=== PATIENT | female | born 1995 | race Caucasian/White ===

== ENCOUNTER 2017-10-08 12:48 | Emergency (ER) | payer MEDICAID, OTHER ==
[2017-10-08 16:33] LABS: URINE BLOOD (Dip) POC Trace-intact (NEGATIVE); URINE GLUCOSE (Dip) POC Negative (NEGATIVE); URINE KETONES (Dip) POC Negative (NEGATIVE); URINE LEUKOCYTE EST (Dip) POC Negative (NEGATIVE); URINE NITRITE (Dip) POC Negative (NEGATIVE); URINE TOTAL PROTEIN POC Negative (NEGATIVE)
[2017-10-08 16:33] LABS: URINE PH (Dip) POC 7.5 (5.0-8.5)
== END 2017-10-08 17:10 | disposition home or self-care (01) ==
LOC: FTE 12:48
DX: N93.8 Other specified abnormal uterine and vaginal bleeding (principal); R10.2 Pelvic and perineal pain
CPT/HCPCS: 81003; 99283

== ENCOUNTER 2018-06-21 22:29 | Inpatient (IN) | payer MEDICAID ==
[2018-06-22] MEDS: ACETAMINOPHEN 500 MG TAB PO (00:10)
[2018-06-22 00:35] LABS: ADD UMIC YES; UR ASCORBIC ACID NEGATIVE (NEGATIVE); UR BILIRUBIN (Dip) NEGATIVE (NEGATIVE); UR BLOOD (Dip) NEGATIVE (NEGATIVE); UR CLARITY CLEAR (CLEAR); UR COLOR YELLOW (YELLOW); UR GLUCOSE (Dip) NEGATIVE (NEGATIVE); UR KETONES (Dip) TRACE mg/dL (NEGATIVE); UR LEUKOCYTE ESTERASE (Dip) 1+ Leu/ul (NEGATIVE); UR NITRITE (Dip) NEGATIVE (NEGATIVE); UR RBC 1 /HPF (0-5); UR SPECIFIC GRAVITY (Dip) 1.008 (1.003-1.030); UR SQUAMOUS EPITHELIAL CELL FEW /HPF (FEW); UR TOTAL PROTEIN (Dip) NEGATIVE (NEGATIVE); UR UROBILINOGEN (Dip) NEGATIVE (NEGATIVE); UR WBC 4 /HPF (0-5)
[2018-06-22] MEDS: BETAMET NA PHOS/AC(6 MG/ML) 5ML INJ IM (02:54)
[2018-06-22] MEDS: LACTATED RINGER'S 1,000 ML IV ×4 (03:06→21:20)
[2018-06-22] MEDS: MAGNESIUM SULFATE 4 GM/100 ML 100 ML IV (03:11)
[2018-06-22] MEDS: AMPICILLIN 2 GM/NS (PMX) 100 ML IV (03:31)
[2018-06-22 03:33] LABS: ADD MAN DIFF? NO
[2018-06-22 03:37] LABS: HEMATOCRIT 33.7 % (37.0-47.0); HEMOGLOBIN 11.4 g/dl (12.0-16.0); MEAN CORPUSCULAR HEMOGLOBIN 31.8 pg (29.0-33.0); MEAN CORPUSCULAR HGB CONC 33.8 g/dl (32.0-37.0); MEAN CORPUSCULAR VOLUME 94.1 fl (82.0-101.0); RED BLOOD COUNT 3.58 10^6/ul (4.20-5.40); RED CELL DISTRIBUTION WIDTH 12.4 % (11.5-14.5)
[2018-06-22 03:37] LABS: WHITE BLOOD COUNT 8.5 10^3/ul (4.8-10.8)
[2018-06-22 03:38] LABS: BASOPHILS % 0.2 % (0.0-2.0); LYMPHOCYTES # 0.8 10^3/ul (0.8-2.9); LYMPHOCYTES % 9.5 % (15.0-51.0); MEAN PLATELET VOLUME 9.6 fl (7.4-10.4); MONOCYTE # 0.9 10^3/ul (0.3-0.9); MONOCYTES % 10.5 % (0.0-11.0); NEUTROPHIL # 6.8 10^3/ul (1.6-7.5); NEUTROPHILS % 79.3 % (39.0-77.0); PLATELET COUNT 230 10^3/UL (140-415)
[2018-06-22] MEDS: MAGNESIUM SULFATE 20 GM/500 ML 500 ML IV ×3 (03:44→15:17)
[2018-06-22 03:52] LABS: LACTIC ACID 1.3 mmol/L (0.5-2.0)
[2018-06-22 03:53] LABS: INR 0.91; PROTIME 12.3 Sec (11.9-14.9)
[2018-06-22 03:54] LABS: PARTIAL THROMBOPLASTIN TIME 28.8 Sec (23.0-35.0)
[2018-06-22] MEDS ORDERED: AMPICILLIN 1 GM/NS (PMX) 50 ML IV (06:00)
[2018-06-22 06:57] LABS: MAGNESIUM 4.3 mg/dl (1.7-2.5)
[2018-06-22] MEDS: AMPICILLIN 1 GM/NS (PMX) 50 ML IV ×5 (07:32→23:48)
[2018-06-22] MEDS: PRENATAL VITAMIN PO (09:55)
[2018-06-22] MEDS: FERROUS SULFATE (EC) 325 MG TAB PO (09:56)
[2018-06-22 13:29] LABS: MAGNESIUM 3.9 mg/dl (1.7-2.5)
[2018-06-22 15:54] LABS: RAPID PLASMA REAGIN NONREACTIVE (NR)
[2018-06-22 18:09] LABS: MAGNESIUM 3.9 mg/dl (1.7-2.5)
[2018-06-22 18:10] LABS: ALANINE AMINOTRANSFERASE 24 IU/L (13-69); ALBUMIN 3.4 g/dl (3.3-4.9); ALBUMIN/GLOBULIN RATIO 1.21; ALKALINE PHOSPHATASE 117 IU/L (42-121); ANION GAP 12 (8-16); ASPARTATE AMINO TRANSFERASE 27 IU/L (15-46); BILIRUBIN,INDIRECT 0.3 mg/dl (0-1.1); BILIRUBIN,TOTAL 0.3 mg/dl (0.2-1.3); CALCIUM 7.7 mg/dl (8.4-10.2); CARBON DIOXIDE 24 mmol/L (21-31); CHLORIDE 105 mmol/L (97-110); CREATININE 0.36 mg/dl (0.44-1.00); GLUCOSE 105 mg/dl (70-220); POTASSIUM 3.7 mmol/L (3.5-5.1); SODIUM 137 mmol/L (135-144); TOTAL PROTEIN 6.2 g/dl (6.1-8.1)
[2018-06-22 18:11] LABS: BLOOD UREA NITROGEN < 2 mg/dl (7-20)
[2018-06-23] MEDS: LACTATED RINGER'S 1,000 ML IV ×2 (02:34→14:42)
[2018-06-23] MEDS: BETAMET NA PHOS/AC(6 MG/ML) 5ML INJ IM (02:34)
[2018-06-23] MEDS: AMPICILLIN 1 GM/NS (PMX) 50 ML IV ×5 (02:35→19:30)
[2018-06-23 08:11] LABS: MAGNESIUM 3.7 mg/dl (1.7-2.5)
[2018-06-23] MEDS: FERROUS SULFATE (EC) 325 MG TAB PO (08:43)
[2018-06-23] MEDS: PRENATAL VITAMIN PO (08:43)
[2018-06-23] MEDS: MAGNESIUM SULFATE 20 GM/500 ML 500 ML IV (11:30)
== END 2018-06-23 21:20 | disposition home or self-care (01) | DRG 833 ==
LOC: OBT 22:29 → L-D 22:32 → PP1 06-22 15:25
DX: O60.03 Preterm labor without delivery, third trimester (principal); O26.893 Other specified pregnancy related conditions, third trimester; J11.1 Influenza due to unidentified influenza virus with other respiratory manifestations; R50.9 Fever, unspecified; R10.9 Unspecified abdominal pain; M79.605 Pain in left leg; M79.604 Pain in right leg; Z3A.31 31 weeks gestation of pregnancy
CPT/HCPCS: 76817; 76818; 80053; 81001; 82731; 83605; 83735; 85025; 85610; 85730; 86592; 86850; 86900; 86901; 87040; 87081; 87086; 93970

== ENCOUNTER 2018-07-20 17:44 | Outpatient (CLI) | payer MEDICAID ==
[2018-07-20 19:25] LABS: RUPTURE FETAL MEMBRANES NEGATIVE (NEGATIVE)
== END 2018-07-20 20:48 | disposition home or self-care (01) ==
LOC: OBT 17:44 → L-D 17:46 → OBT 20:48
DX: O12.03 Gestational edema, third trimester (principal); Z3A.34 34 weeks gestation of pregnancy
CPT/HCPCS: 76818; 84112

== ENCOUNTER 2018-08-09 17:39 | Inpatient (IN) | payer MEDICAID ==
[2018-08-09] MEDS ORDERED: TERBUTALINE 1 ML (21:18)
[2018-08-09] MEDS: TERBUTALINE 1 MG/ML INJ SC (21:29)
[2018-08-09] MEDS ORDERED: MISOPROSTOL 200 MCG TAB PR (21:30)
[2018-08-09] MEDS ORDERED: METHYLERGONOVINE 0.2 MG INJ IM (21:30)
[2018-08-09] MEDS: LACTATED RINGER'S 1,000 ML IV (21:30)
[2018-08-09] MEDS ORDERED: OXYTOCIN 30 UNITS/LR 500 ML IV ×2 (21:30)
[2018-08-09] MEDS ORDERED: CEFAZOLIN 2 GM/50 ML (PMX) 50 ML IVPB (21:30)
[2018-08-09] MEDS ORDERED: CARBOPROST 250 MCG INJ IM (21:30)
[2018-08-09 21:49] LABS: ADD MAN DIFF? NO
[2018-08-09 21:53] LABS: BASOPHILS % 0.2 % (0.0-2.0); EOSINOPHILS % 0.2 % (0.0-7.0); HEMATOCRIT 36.3 % (37.0-47.0); HEMOGLOBIN 12.2 g/dl (12.0-16.0); LYMPHOCYTES # 2.1 10^3/ul (0.8-2.9); LYMPHOCYTES % 24.3 % (15.0-51.0); MEAN CORPUSCULAR HEMOGLOBIN 31.9 pg (29.0-33.0); MEAN CORPUSCULAR HGB CONC 33.6 g/dl (32.0-37.0); MEAN CORPUSCULAR VOLUME 94.8 fl (82.0-101.0); MEAN PLATELET VOLUME 9.9 fl (7.4-10.4); MONOCYTE # 0.6 10^3/ul (0.3-0.9); PLATELET COUNT 231 10^3/UL (140-415); RED BLOOD COUNT 3.83 10^6/ul (4.20-5.40); RED CELL DISTRIBUTION WIDTH 12.6 % (11.5-14.5)
[2018-08-09 21:53] LABS: WHITE BLOOD COUNT 8.8 10^3/ul (4.8-10.8)
[2018-08-09 22:12] LABS: INR 0.88; PT RATIO 0.9
[2018-08-09 22:13] LABS: PARTIAL THROMBOPLASTIN TIME 26.7 Sec (23.0-35.0)
[2018-08-10] MEDS: LACTATED RINGER'S 1,000 ML IV ×2 (01:02→08:40)
[2018-08-10] MEDS ORDERED: TERBUTALINE 1 ML (09:08)
[2018-08-10] MEDS ORDERED: morphine SULFATE/PF (10 MG/10 ML) INJ (09:49)
[2018-08-10] MEDS ORDERED: FENTAnyl 50 MCG/ML VIAL (09:49)
[2018-08-10] MEDS ORDERED: DEXAMETHASONE 4 MG/ML 1 ML INJ (10:02)
[2018-08-10] MEDS ORDERED: ONDANSETRON 4 MG INJ (10:02)
[2018-08-10] MEDS ORDERED: PHENYLephrine (100 MCG/ML) 5ML SYG (10:07)
[2018-08-10] MEDS ORDERED: OXYTOCIN 30 UNITS/LR 500 ML IV ×2 (11:04→11:30)
[2018-08-10] MEDS ORDERED: ONDANSETRON 4 MG INJ IV (11:30)
[2018-08-10] MEDS ORDERED: LANOLIN 7 GM TUBE TOP (11:30)
[2018-08-10] MEDS ORDERED: MISOPROSTOL 200 MCG TAB PR (11:30)
[2018-08-10] MEDS ORDERED: KETOROLAC 30 MG INJ IV (11:30)
[2018-08-10] MEDS ORDERED: METHYLERGONOVINE 0.2 MG INJ IM (11:30)
[2018-08-10] MEDS ORDERED: NALOXONE (0.4 MG/ML) INJ IV (11:30)
[2018-08-10] MEDS ORDERED: METHYLERGONOVINE 0.2 MG TAB PO (11:30)
[2018-08-10] MEDS ORDERED: HYDROmorphONE 0.5 MG/0.5 ML SYG IV (11:30)
[2018-08-10] MEDS ORDERED: CARBOPROST 250 MCG INJ IM (11:30)
[2018-08-10] MEDS: HYDROmorphONE 0.5 MG/0.5 ML SYG IV (13:20)
[2018-08-10] MEDS: DEXTROSE 5%-LR 1,000 ML IV ×2 (13:40→19:19)
[2018-08-10] MEDS: IBUPROFEN 800 MG TAB PO ×2 (14:00→21:04)
[2018-08-10] MEDS: TERBUTALINE 1 MG/ML INJ SC (14:50)
[2018-08-10] MEDS: OXYTOCIN 30 UNITS/LR 500 ML IV (16:10)
[2018-08-10 16:26] LABS: RAPID PLASMA REAGIN NONREACTIVE (NR)
[2018-08-10] MEDS: SENNA/DOCUSATE NA (8.6MG/50MG) TAB PO (21:00)
[2018-08-11] MEDS: DEXTROSE 5%-LR 1,000 ML IV ×4 (00:40→23:21)
[2018-08-11] MEDS: HYDROmorphONE 0.5 MG/0.5 ML SYG IV ×2 (02:48→07:27)
[2018-08-11] MEDS: DIPHENHYDRAMINE 50 MG INJ IV (02:48)
[2018-08-11] MEDS: IBUPROFEN 800 MG TAB PO ×4 (06:00→21:39)
[2018-08-11] MEDS: SENNA/DOCUSATE NA (8.6MG/50MG) TAB PO ×2 (09:19→21:39)
[2018-08-11] MEDS: HYDROCODONE/APAP (5/325) TAB NGT ×2 (09:22→16:31)
[2018-08-11 10:08] LABS: ADD MAN DIFF? NO
[2018-08-11 10:11] LABS: BASOPHILS % 0.2 % (0.0-2.0); HEMATOCRIT 31.9 % (37.0-47.0); HEMOGLOBIN 10.6 g/dl (12.0-16.0); LYMPHOCYTES # 1.3 10^3/ul (0.8-2.9); LYMPHOCYTES % 11.8 % (15.0-51.0); MEAN CORPUSCULAR HGB CONC 33.2 g/dl (32.0-37.0); MEAN CORPUSCULAR VOLUME 96.4 fl (82.0-101.0); MONOCYTE # 1.1 10^3/ul (0.3-0.9); MONOCYTES % 9.9 % (0.0-11.0); NEUTROPHIL # 8.8 10^3/ul (1.6-7.5); NEUTROPHILS % 77.7 % (39.0-77.0); PLATELET COUNT 208 10^3/UL (140-415); RED BLOOD COUNT 3.31 10^6/ul (4.20-5.40); RED CELL DISTRIBUTION WIDTH 12.9 % (11.5-14.5)
[2018-08-11 10:11] LABS: WHITE BLOOD COUNT 11.3 10^3/ul (4.8-10.8)
[2018-08-11] MEDS ORDERED: DIPHTH/TET/ACEL PERTUSS (ADULT) 0.5 ML VIAL IM* (11:00)
[2018-08-11] MEDS: HYDROCODONE/APAP (5/325) TAB GTB ×2 (14:00→21:40)
[2018-08-12] MEDS: IBUPROFEN 800 MG TAB PO ×3 (05:45→22:00)
[2018-08-12] MEDS: HYDROCODONE/APAP (5/325) TAB GTB ×3 (05:45→22:00)
[2018-08-12] MEDS: SENNA/DOCUSATE NA (8.6MG/50MG) TAB PO ×2 (10:50→21:00)
[2018-08-12] MEDS: DEXTROSE 5%-LR 1,000 ML IV ×2 (11:19→16:00)
[2018-08-13] MEDS: HYDROCODONE/APAP (5/325) TAB GTB ×2 (03:02→16:16)
[2018-08-13] MEDS: DEXTROSE 5%-LR 1,000 ML IV ×2 (03:19→09:45)
[2018-08-13] MEDS: IBUPROFEN 800 MG TAB PO ×2 (06:02→14:46)
[2018-08-13] MEDS: SENNA/DOCUSATE NA (8.6MG/50MG) TAB PO (08:56)
[2018-08-13] MEDS: DIPHTH/TET/ACEL PERTUSS (ADULT) 0.5 ML VIAL IM* (08:57)
[2018-08-13] MEDS: MEASLES,MUMPS,RUBELLA VACCINE INJ SC* (09:45)
== END 2018-08-13 19:50 | disposition home or self-care (01) | DRG 788 ==
LOC: OBT 17:39 → L-D 08-10 09:22 → PP1 08-10 13:25 → L-D 17:46 → OBT 20:04 → L-D 20:04
PROVIDERS: Obstetrics & Gynecology
PROC: 10D00Z1 Extraction of Products of Conception, Low, Open Approach (ICD-10-PCS; principal; 2018-08-10 07:30)
DX: O32.1XX0 Maternal care for breech presentation, not applicable or unspecified (principal); Z3A.38 38 weeks gestation of pregnancy; Z37.0 Single live birth
CPT/HCPCS: 36415; 76818; 85025; 85610; 85730; 86592; 86850; 86900; 86901; 90686; 90715; 99464

== ENCOUNTER 2018-09-12 18:12 | Emergency (ER) | payer MEDICAID ==
[2018-09-12 21:02] LABS: ADD UMIC NO; UR ASCORBIC ACID NEGATIVE (NEGATIVE); UR BILIRUBIN (Dip) NEGATIVE (NEGATIVE); UR BLOOD (Dip) NEGATIVE (NEGATIVE); UR CLARITY CLEAR (CLEAR); UR COLOR STRAW (YELLOW); UR GLUCOSE (Dip) NEGATIVE (NEGATIVE); UR KETONES (Dip) NEGATIVE (NEGATIVE); UR LEUKOCYTE ESTERASE (Dip) NEGATIVE Leu/ul (NEGATIVE); UR NITRITE (Dip) NEGATIVE (NEGATIVE); UR SPECIFIC GRAVITY (Dip) 1.013 (1.003-1.030); UR TOTAL PROTEIN (Dip) NEGATIVE (NEGATIVE); UR UROBILINOGEN (Dip) NEGATIVE (NEGATIVE)
[2018-09-12] MEDS: ACETAMINOPHEN 325 MG TAB PO (21:27)
== END 2018-09-12 21:37 | disposition home or self-care (01) ==
LOC: E/R 18:12
DX: G89.18 Other acute postprocedural pain (principal)
CPT/HCPCS: 81003; 99283